=== PATIENT | female | born 1980 | race Hispanic/Latino ===

== ENCOUNTER 2021-05-19 18:36 | Emergency (ER) | payer BC, SELFPAY ==
--- NOTE | 2021-05-19 18:41 | ED.FEMALEGU ---
HPI - Female Genitourinary General Chief complaint: Urogenital-Female Stated complaint: uti Time Seen by Provider: 05/19/21 19:13 Source: patient and RN notes reviewed Mode of arrival: ambulatory Limitations: no limitations History of Present Illness HPI Narrative: 41-year-old female presents to the [facility] with complaints of I think I have a UTI. Has had right flank pain along with fever and urinary symptoms. States it is for started 4 to 5 weeks ago, did get better with home treatment. States that today the back pain and urinary symptoms became worse. Related Data Home Medications Medication Instructions Recorded Confirmed Bc Pill 05/19/21 metformin 05/19/21 Allergies Allergy/AdvReac Type Severity Reaction Status Date / Time No Known Allergies Allergy Verified 05/19/21 18:46 Review of Systems Review of Systems: All systems reviewed & are unremarkable except as noted in HPI and below Constitutional: Constitutional: Reports no additional constitutional complaints Eyes: Eyes: Reports no additional eye complaints ENT: Reports system reviewed and no additional complaints, except as documented Cardiovascular: Cardiovascular: Reports no additional cardiovascular complaints Respiratory: Respiratory: Reports no additional respiratory complaints Gastrointestinal: Gastrointestinal: Reports no additional gastrointestinal complaints Genitourinary: Genitourinary: Reports as per HPI, Reports nocturia and Reports dysuria Comments: right flank pain Musculoskeletal: Musculoskeletal: Reports no additional musculoskeletal complaints Integumentary/Breasts: Skin/Breast: Reports system reviewed and no additional complaints, except as docu Neurologic: Reports system reviewed and no additional complaints, except as documented Psychiatric: Psychiatric: Reports no additional psychiatric complaints Allergic/Immunologic: Allergic/Immunologic: Reports no additional allergic/immunologic complaints PMFSH Past Medical History Medical History (Updated 05/19/21 @ 19:42 by Marli Carter) PCOS (polycystic ovarian syndrome) Surgical History Surgical History (Updated 05/19/21 @ 19:14 by Marli Carter) No significant past surgical history Social History Social History (Updated 05/19/21 @ 19:14 by Marli Carter) Living arrangements: with family Gender identity (if verbalized by the patient): Female Comments At the time of my signature, I reviewed and agree with the nursing past medical, surgical, social, and family history. There is no relevant family history pertinent to the patient complaint. Exam Const: General: healthy appearing, no acute distress and alert Nutritional Appearance: well nourished and obese Orientation/consciousness: patient oriented x3 Limitations: no limitations HENMT: Head: normal to inspection Eyes: Conjunctivae: conjunctivae normal Pupils: Equal, round and reactive pupils present Neck: Neck: normal visual inspection, no lymphadenopathy and no meningeal signs Chest: Chest palpation & inspection: normal inspection of the chest Resp: Effort & Inspection: normal respiratory effort and no use of accessory muscles Auscultation: clear to auscultation bilaterally, no crackles, no rales, no rhonchi and no wheezes Cardio: Rate: regular rate Rhythm: regular rhythm GI: GI Palp: Yes Soft to palpation, No Tenderness to palpation present (GI) and No Guarding due to palpation present (GI) : General: Yes bladder normal to palpation and Yes CVA tenderness (right flank) on the right Back/Spine/Pelvis: Back: CVA tenderness (right) Skin: General skin exam: normal color Rashes: no rashes Wounds: no wounds Neuro: General: patient oriented x3, moves all extremities, no meningeal signs and no focal motor deficits Speech: normal speech Gait exam (Neuro): Normal gait present Extrem: General: normal to inspection Psych: Mental Status: mental status grossly normal Affect: normal aff
[2021-05-19 18:46] VITALS: BP 150/83; PULSE 133; RESP 22; TEMP 39.1; O2SAT 100
[2021-05-19 18:58] VITALS: BP 150/83; PULSE 133; RESP 22; TEMP 39.1; O2SAT 100
--- NOTE | 2021-05-19 18:59 | PC.NURSE ---
1851 in br to obtain ua spec.
[2021-05-19] MEDS: cefTRIAXone 1 GM VIAL IM (19:10)
[2021-05-19] MEDS: LIDOCAINE HCL 1% LOCAL INJ 20 ML VIAL 2.1 ML IM (19:11)
[2021-05-19 19:34] VITALS: PULSE 123; RESP 20; TEMP 37.2; O2SAT 100
== END 2021-05-19 19:45 | disposition home or self-care (01) ==
PROVIDERS: Emergency Provider Nurse Practitioner
DX: N12 Tubulo-interstitial nephritis, not specified as acute or chronic (principal); B96.20 Unspecified Escherichia coli [E. coli] as the cause of diseases classified elsewhere
CPT/HCPCS: 81003; 87077; 87086; 87088; 87186; 96372; 99213; G0463; J0696

== ENCOUNTER 2022-05-31 15:02 | Emergency (ER) | payer BC, SELFPAY ==
--- NOTE | ~2022-05-31 | XR_ITS ---
XR abdomen/kub 1V DATE: 05/31/2022 17:47 INDICATION: Kidney stone TECHNIQUE: AP projection, 2 views COMPARISON: 05/27/[address] abdomen pelvis FINDINGS: Approximately 5.5 mm calcified calculus is noted at the mid L4 level. Status post cholecystectomy. No evidence of bowel obstruction. Lung bases are clear. Included skeletal structures are unremarkable. IMPRESSION: Approximately 5.5 mm calcified ureteral calculus at mid L4 level Reviewed, dictated and finalized at [facility]. Reviewed, dictated and finalized at [facility].
--- NOTE | ~2022-05-31 | CT_ITS ---
EXAMINATION: CT abdomen pelvis wo con DATE: 05/31/2022 16:49 INDICATION: Left flank and groin pain, nausea and vomiting TECHNIQUE: Computed tomography (CT) of the abdomen and pelvis was performed without intravenous contr ast. Automated exposure control and iterative reconstruction technique were employed. Exam dose: 770 .66 mGy-cm total exam DLP. COMPARISON: None. FINDINGS: Lung bases are clear. Normal heart size. No pericardial or pleural effusion. Status post cholecystectomy. No bile duct or pancreatic duct dilatation. No hepatic, splenic, pancrea tic, and adrenal or renal space-occupying mass lesion is evident on this limited noncontrast examinat ion. There is an approximately 3.5 x 5 mm calculus of the left ureter at the L4 level, with moderate left hydroureteronephrosis. No other urinary tract calculus is noted. Normal caliber of the abdominal aorta. No intraperitoneal or retroperitoneal or pelvic mass lesion or adenopathy or ascites. The uterus, adnexal areas and urinary bladder are unremarkable. Small amount of free fluid in the posterior cul-de-sac, likely physiologic. Normal appendix. Diverticulosis of the sigmoid colon. No evidence of diverticulitis. No bowel obstruc tion or intraperitoneal free air. Included skeletal structures are unremarkable other than degenerative spurring of the lower thoracic spine. IMPRESSION: 3.5 x 5 mm obstructing left calculus at L4 level with moderate proximal left hydroureter onephrosis Diverticulosis of left colon; no evidence of diverticulitis Status post cholecystectomy Reviewed, dictated and finalized at [facility]. Reviewed, dictated and finalized at [facility]. IMPRESSION: 3.5 x 5 mm obstructing left calculus at L4 level with moderate pro ximal left hydroureteronephrosis Diverticulosis of left colon; no evidence of diverticulitis Status post cholecystectomy
[2022-05-31 15:04] VITALS: BP 143/87; PULSE 75; RESP 16; TEMP 36.5; O2SAT 100
[2022-05-31 16:11] LABS: Alanine Aminotransferase 19 U/L (6-35); Albumin Level 4.2 g/dL (3.5-5.1); Alkaline Phosphatase 58 U/L (38-126); Anion Gap 12 mmol/L (8-16); Aspartate Amino Transferase 31 U/L (14-36); Bilirubin,Total 0.3 mg/dL (0.2-1.3); Blood Urea Nitrogen 12 mg/dL (7-17); Calcium 8.6 mg/dL (8.4-10.2); Carbon Dioxide 22 mmol/L (22-30); Chloride 103 mmol/L (98-107); Estimated CRCL calculation 75 ml/min; Estimated Glomerular Filt Rate > 60; Glucose 117 mg/dL (65-110); Potassium 3.9 mmol/L (3.4-5.0); Sodium 137 mmol/L (137-145)
[2022-05-31 16:32] LABS: Basophils Absolute Auto 0.1 K/mm3 (0.0-0.1); Basophils Percent Auto 0.4 % (0.2-1.2); Eosinophils Percent Auto 0.1 % (0-4.4); Hematocrit 44.4 % (37.0-47.0); Hemoglobin 14.6 g/dL (12.0-15.0); Immature Granulocyte Absolute 0.07 K/mm3 (0.00-0.031); Immature Granulocyte Percent A 0.4 % (0-0.5); Lymphocytes Absolute Auto 1.36 K/mm3 (0.9-3.2); Lymphocytes Percent Auto 8.5 % (18.3-44.2); Mean Corpuscular HGB Conc 32.9 g/dl (32-36); Mean Corpuscular Hemoglobin 30.2 pg (26-34); Mean Corpuscular Volume 91.9 fl (80-100); Mean Platelet Volume 8.7 fl (7.4-10.4); Monocytes Absolute Auto 0.7 K/mm3 (0.1-0.6); Monocytes Percent Auto 4.1 % (2.6-8.5); Neutrophils Absolute Auto 13.9 K/mm3 (1.3-6.7); Neutrophils Percent Auto 86.5 % (45.5-73.1); Platelet Count Result 369 k/mm3 (150-375); Red Blood Count 4.83 M/mm3 (4.2-5.4); Red Cell Distribution Width 14.7 % (11.5-14.5)
[2022-05-31 16:34] LABS: Appearance Urine Slightly Cloudy (Clear); Bilirubin Urine 1+ (Negative); Color Urine Yellow (Yellow); Glucose Urine UA Negative (Negative); Ketones Urine 4+ mg/dL (Negative); Leukocyte Esterase Ur Negative LEU/UL (Negative); Nitrate Urine Negative (Negative); Protein Urine 2+ mg/dL (Negative); Specific Grav Ur >= 1.030 (1.001-1.035); Urobilinogen Urine 0.2 mg/dL (<2.0); pH Urine 5.5 (5.0-9.0)
--- NOTE | 2022-05-31 16:34 | ED.ABDPAIN ---
HPI - Abdominal Pain General Chief Complaint: Abdominal Pain Stated Complaint: left flank pain that began this morning with n/v Time Seen by Provider: 05/31/22 16:22 History of Present Illness HPI narrative: 42-year-old female here for evaluation of left flank/groin pain over the past 12 hours. Patient states the pain is intermittent but severe in nature, coming in waves, denies obvious trigger for her pain. She denies any alleviating factors, states that she took an ibuprofen this morning but unfortunately vomited up shortly afterwards. She has had 3 episodes of vomiting nonbloody/nonbilious emesis in total. She denies any fevers, chills, urinary complaints, diarrhea, constipation, chest pain or shortness of breath. No history of kidney stones. Related Data Home Medications Medication Instructions Recorded Confirmed Bc Pill 05/19/21 metformin 05/19/21 Allergies Allergy/AdvReac Type Severity Reaction Status Date / Time No Known Allergies Allergy Verified 05/19/21 18:46 Review of Systems Review of Systems: Gen: Denies fevers or chills Eyes: Denies eye pain or visual change ENT: Denies congestion Respiratory: Denies shortness of breath or cough CV: Denies chest pain or palpitations GI: Denies abdominal pain nausea, emesis or diarrhea denies burning, urgency, frequency or hematuria Musculoskeletal: Reports flank pain. Neuro: Denies numbness, tingling, weakness or focal weakness Skin: Denies rash Except as documented, all other systems reviewed and negative PMFSH Past Medical History Medical History PCOS (polycystic ovarian syndrome) Surgical History Surgical History No significant past surgical history Social History Social History (Updated 05/19/21 @ 19:14 by Marli Carter APRN) Gender identity (if verbalized by the patient): Female Exam Narrative: APPEARANCE: Well appearing, no pain in distress, well-nourished. Head: Normocephalic and atraumatic. EYES: PERRLA/EOMI, conjunctivae clear NOSE: No nasal drainage EARS: External ear normal in appearance THROAT: Oropharynx is clear. Mucous membranes are moist. NECK: Supple. No adenopathy, no masses. RESPIRATORY: Airway patent, respirations nonlabored. Clear to auscultation bilaterally, no rales, rhonchi, wheezing. CARDIOVASCULAR: Regular rate and rhythm without murmurs, rubs, or gallops. ABDOMINAL: No CVAT. Normoactive bowel sounds. Soft, nontender, nondistended. No rebound tenderness or guarding. MUSCULOSKELETAL: Extremities are warm and well-perfused. Moves all extremities well. No edema. NEURO: Normal speech. No focal neurologic deficits. SKIN: Skin is warm and dry. No rashes. PSYCHIATRIC: Normal affect/mood. Course Consultations Consultation #1: Spoke with Dr. Bloom, urology, agrees w/ plan for discharge w/ pain meds, will follow up in office Date: 05/31/22 Time: 17:56 Vital Signs Vital signs: Vital Signs Temperature 97.7 F 05/31/22 15:04 Pulse Rate 75 05/31/22 15:04 Respiratory Rate 16 05/31/22 15:04 Blood Pressure 143/87 H 05/31/22 15:04 Pulse Oximetry 100 05/31/22 15:04 Oxygen Delivery Room Air 05/31/22 15:04 Temperature 97.7 F 05/31/22 15:04 Pulse Rate 75 05/31/22 15:04 Respiratory Rate 16 05/31/22 15:04 Blood Pressure 143/87 H 05/31/22 15:04 Pulse Oximetry 100 05/31/22 15:04 Oxygen Delivery Room Air 05/31/22 15:04 MDM - Abdominal Pain MDM Narrative Medical decision making narrative: 42 year old female here for evaluation of left flank pain, nausea, vomiting for the past several hours. Here she is non-toxic appearing, normal vital signs, no CVA tenderness. Workup significant for a leukocytosis to 16.0, UA with 4+ ketones but does not appear infected; normal glucose/anion gap. Patient rehydrated with 1 L fluids, ketones may be due to dehydration. CT show
[2022-05-31 16:41] LABS: Add Urine Microscopic? YES; Blood Urine Trace-Intact (Negative)
[2022-05-31 16:51] LABS: Bacteria Urine Trace /hpf; Mucus Urine Moderate /lpf; Squamous Epithelial Cell Urine Many /hpf (Few); WBC Urine 0-3 /hpf
[2022-05-31] MEDS: ONDANSETRON INJ 4 MG/2 ML VIAL IV PUSH (17:07)
[2022-05-31] MEDS: SODIUM CHLORIDE 0.9% IV 1,000 ML 999 ML IV CONT (17:07)
[2022-05-31] MEDS: MORPHINE SULFATE (*CRX) 4 MG/ML INJ IV PUSH (17:07)
== END 2022-05-31 19:33 | disposition home or self-care (01) ==
PROVIDERS: Emergency Provider Emergency Medicine; PCP Physician Assistant
DX: N13.2 Hydronephrosis with renal and ureteral calculous obstruction (principal); E28.2 Polycystic ovarian syndrome; K57.90 Diverticulosis of intestine, part unspecified, without perforation or abscess without bleeding
CPT/HCPCS: 36415; 74018; 74176; 80053; 81001; 81025; 85025; 96361; 96374; 96375; 99284; J2270; J2405; J7030

== ENCOUNTER 2025-04-19 15:24 | Outpatient (CLI) | payer OTHER, SELFPAY ==
--- NOTE | ~2025-04-19 | MM_ITS ---
EXAMINATION: MM screening richard BI w maria luisa HISTORY: Screening TECHNIQUE: Craniocaudal and mediolateral oblique 3-D tomosynthesis images were obtained and synthetic 2-D images were generated. CAD analysis was submitted and interpreted. COMPARISON: No prior mammogram is available for comparison at this institution. BREAST PARENCHYMAL COMPOSITION: Not dense: There are scattered areas of fibroglandular density. FINDINGS: There is no evidence of suspicious mass, calcification, or architectural distortion to sugg est malignancy in either breast. There has been no suspicious interval change. IMPRESSION: 1. No mammographic evidence of malignancy. 2. Recommend routine screening mammography in one year. BI-RADS Category 1: Negative Reviewed, dictated and finalized at location A.
--- OUTSIDE RECORDS SUMMARY | 2025-04-19 15:30 | XMS_ITS | Clinical Summary ---
Author Organization [facility] Address [address] [place] [address] Care Team Providers Care Coordinator Of Placement Name Role Phone Unavailable Primary Care Provider Unavailabl e Source Comments [facility],non-owned Affiliates and Associated Physician Practices is amultiple site organization consisting of ambulatory clinics and hospital sitesin [place], [place], [place] and [place]. This disclosure is being madepursuant to the Care Everywhere program and may not contain all information available regarding this patient. Last updated 18.[facility] Allergies Active Allergy Reactions Criticality Noted Date Comments Adhesive Sensitivity 03/31/2012 Sensitivity to OR drape adhesive Medications * Be aware that medications may not be up to date on this document. Alwaysverify current medications with the patient. Vit-Fe Fumarate-FA ( VITAMIN) 28-0.8 MG tabletIndicatio ns: Take 1 Tab by mouth once daily. Indications: Active valACYclovir (VALTREX) 500 MG tablet Take 1 Tab by mouth 2 times daily. 60 Tab 1 2 Active ibuprofen (MOTRIN) 600 MG tablet Take 1 Tab by mouth every 6 hours as needed for Pain. 60 Tab 1 3 Active docusate sodium (COLACE) 100 MG capsule Take 1 Cap by mouth 2 times daily as needed for Constipation. 60 Cap 1 3 Active oxycodone-aceta minophen (PERCOCET) 5-325 MG tablet Take 1 Tab by mouth every 6 hours as needed for Pain. 30 Tab 0 3 Active Active Problems Patient Care Coordination No te Formatting of this note migh t be different from the original. Pharmacy # [phone] Problem Noted Date Diagnosed Date Velamentous insertion of umbilical cord 09/22/19 13 Overview (09/22/2012): Identified on 06/16/12 GDM, class A1 07/07/2012 Overview (09/02/2012): Last u/s on 09/01: 2371v(14.3) BPP 06/16 Bravo cerclage present 03/31/2012 Overview (09/22/2012): cerclage placed03/31/12, modified kaelyn, mersilene with prolene tag, knot at 12 o'clock Removed at 36 wks History of cerclage in prior as well Supervision of other high-risk 012 Overview (07/15/2015): Transfer from [facility] Dating: LMP c/w 6wk doc u/s Labs: A+/Immune/-/- Antibody: Neg HIV: NR Hgb/Hct/Plt: 14.4/41.8/385 HgbE: GC/CT: Neg/Neg Pap: Genetics: Anatomy: GCT: 125 04/21/12 Repeat GCT: 158 GTT: 84/211/174/112 GBS: neg 08/25/12 Breast/bottle: Contraception: H/O: section 03/16/2012 Overview (09/03/2012): OP report reviewed by Dr. Deras and was faxed to L&D on 09/03 Primary Low Transverse Uterine Incision. 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+, hx outbreak in On valtrex for symptoms LGSIL (low grade squamous in traepithelial lesion) on Pap smear Overview (04/07/2012): F/U pp, will defer colpo until after delivery Hx of delivery, currently Overview (04/07/2012): 26wk due to PTL Immunizations Immunization Administration Dates Next Due INFLUENZA VACCINE 06/02/2012 TDAP (7yrs+) 09/24/2012 Family History Medical History Relation Name Comments Hypercholesterolemia Father Cancer Mother Diabetes Mother Negative Family History Other Relation Name Status Comments Father Mother Other Social History Tobacco Use Types Packs/Day Years Used Date Smoking Tobacco: Never Alcohol Use Standard Drinks/Week Comments No 0 (1 standard drink = 0.6 oz pur e alcohol) Comments Unknown Sex and Gender Information Value Date Recorded Sex Assigned at Not on file Legal Sex Female 6:29 AM RESOURCE ENGINEER Gender Identity Not on file Sexual Orientation Not on file Last Filed Vital Signs Vital Sign Reading Time Taken Comments Blood Pressure 117/79 09/29/2012 3:00 PM RESOURCE ENGINEER Pulse 86 09/24/2012 3:24 PM RESOURCE ENGINEER Temperature 36.4 C (97.6 F) 09/25/2012 8:18 AM RESOURCE ENGINEER Respiratory Rate 18 09/25/2012 8:18 AM RESOURCE ENGINEER Oxygen Saturation 100% 09/24/2012 11:45 PM RESOURCE ENGINEER Inhaled Oxygen Concentration - - Weight 90.3 kg (199 lb) 09/29/2012 3:00 PM RESOURCE ENGINEER Height 152.4 cm (5') 09/22/2012 2:06 PM RESOURCE ENGINEER Body Mass Index 38.86 09/22/2012 2:06 PM RESOURCE ENGINEER Plan of Treatment Health Maintenance Due Date Last Done Comments COLOGUARD (AGES 45-75) - COL ON CA SCREENING 1978 COLON MONITORING 1978 COLONOSCOPY - COLON CA SCREENING 1978 CT COLONOGRAPHY - COLON CA SCREENING 1978 Colorectal Cancer Screening 1978 FIT - COLON CA SCREENING 1978 FLEX SIG - COLON CA SCREENING 1978 LIPID TESTING 1978 MAMMOGRAM 1978 HIV SCREENING 1993 HEPATITIS C SCREENING 02/07/1996 HEPATITIS B VACCINE (1 of 3 - 19+ 3-dose series) 1997 PAP SMEAR 1999 DTAP/TDAP/TD VACCINES (2 - T d or Tdap) 09/24/2022 09/24/2012 COVID-19 VACCINE (2023-2 5 season) 2024 DEPRESSION SCREENING 09/07/2024 INFLUENZA VACCINE (#1) 2025 06/02/2012 ZOSTER VACCINE (1 of 2) 02/12/2028 HIB VACCINE Aged Out No longer eligi ble based on patient's age to complete this topic HPV VACCINE Aged Out No longer eligi ble based on patient's age to complete this topic MENINGOCOCCAL (Group B) VACC INE SHARED DECISION-MAKING Aged Out No longer eligibl e based on patient's age to complete this topic MENINGOCOCCAL GROUPS A/C/Y/W VACCINE Aged Out No longer eligible b ased on patient's age to complete this topic PNEUMOCOCCAL VACCINE Aged Out No long er eligible based on patient's age to complete this topic Insurance MEDICAID - [place] Advance Directives * FULL RESUSCITATION (Latest Code Status on File) Date Activated Date Inactivated Comments 09/22/2012 1:53 PM 09/25/2012 12:47 PM
--- OUTSIDE RECORDS SUMMARY | 2025-04-19 15:30 | XMS_ITS | Clinical Summary ---
Author Organization [facility] Address [address] [place] [address] Care Team Providers Care Flattening Machine Operator Name Role Phone No, Physician Primary Care Provider [phone] Allergies No known active allergies Medications norgestimate-ethin yl estradioL (ORTHO TRI-CYCLEN) 0.18/0.215/0.25 mg-35 mcg (28) per tabletIndications: Contraception Take 1 tablet by mouth nightly 4 Active lisinopriL (PRINIVIL,ZESTRIL) 10 mg tabletIndications: hypertension Take 1 tablet (10 mg total) by mouth piece dyer before breakfast Active metFORMIN (GLUCOPHAGE) 1,000 mg tabletIndications: type 2 diabetes mellitus Take 1 tablet (1,000 mg total) by mouth 2 (two) times a day with meals Active ferrous sulfate 325 mg (65 mg of elemental iron) tabletIndications: Iron Deficiency Anemia Take 1 tablet (325 mg total) by mouth every other day Active simvastatin (ZOCOR) 20 mg tabletIndications: hyperlipidemia Take 1 tablet (20 mg total) by mouth nightly Active promethazine (PHENERGAN) 25 mg tablet TAKE 1/2 TABLET BY MOUTH EVERY 6 HOURS NEEDED FOR NAUSEA Active polyethylene glycol-electrolyte s 420 gram solution Take 240 mL by mouth once Active calcium citrate (CALCITRATE) 950 mg (200 mg of elemental calcium) tabletIndications: Hypocalcemia Prevention,hypocal cemia Take 1 tablet (950 mg total) by mouth piece dyer before breakfast Active acetaminophen (TYLENOL) 500 mg tablet Take 2 tablets (1,000 mg total) by mouth every 6 (six) hours as needed for pain 60 tablet 4 Active ibuprofen (ADVIL,MOTRIN) 600 mg tablet Take 1 tablet (600 mg total) by mouth every 6 (six) hours as needed for pain 30 tablet Active Active Problems Problem Noted Date Diagnosed Date Low grade squamous intraepit helial lesion on cytologic smear of cervix (LGSIL) 06/10/2024 Overview (02/16/2025): - Hx of abnormal paps (patient unsure), s/p multiple LEEPs - Pap 12/2023: LSIL, HR HPV+ - Colpo 02/2024: insufficient - Colpo 04/2024: ECC HSIL,CIN2 - Colpo 06/10/2024: low grade impression, no biopsies due to CIN2 - LEEP 06/27/24: HSIL+ at endocervical margins, opted for surveillance Plan: [] cotesting 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 Pt opted for colposcopy. Colposcopy performed as above. Challenging exam given anterior location of cervix. No acetowhite changes visualized. Endocervical curettage performed as above. Plan: [] Follow up pathology [] If normal, plan for cotesting in 1 year Type 2 diabetes mellitus 04/21/2024 Essential hypertension 04/21/2024 Encounters Date Type Department Care Team Description 02/20/2025 Results Follow-Up [facility] Obstetrics and Gynecology [address] [facility] 13th [place] [address] [place] [address] Quinn Betancur MD PhD Surgical pathology 02/17/2025 5:15 PM CDT - 02/17/2025 11:59 PM CDT Hospital Encounter [facility] [address] [place] [address] Discharge Disposition: Discharge to home or self care 02/17/2025 1:45 PM CDT Office Visit [facility] [address] [place] [id number] MIKKI III (cervical intraepithelial neoplasia grade III) with severe dysplasia (Primary Dx); Low grade squamous intraepithelial lesion on cytologic smear of cervix (LGSIL) 02/17/[address] [facility] [address] [place] [address] Martin Noriega MD MIKKI III (cervical intraepithelial neoplasia grade III) with severe dysplasia 02/01/2025 Telephone [facility] [address] [place] [address] 3rd Floor [address] [place] [phone] Ema Lama, ZORA 01/31/2025 Telephone [facility] [address] [place] [address] 3rd Floor [address] [place] [phone] Margarito Malik 01/27/2025 Telephone [facility] [address] [place] [address] 3rd Floor [address] [place] [phone] Charito Merrill RN 01/27/2025 Results Follow-Up [address] [address] Jo Carrizales MD PhD Pap and High Risk HPV and Genotyping (Cytology Component) 01/27/[address] [phone] Jo Carrizales MD PhD from Last 3 Months Surgical History Surgery Date Site/Laterality Comments CHOLECYSTECTOMY 09/07/2000 - 09/06/2001 Laparoscopic SECTION 2004, 2012 COLONOSCOPY 09/07/2023 - 09/06/2024 CERVICAL CERCLAGE 09/07/2004 - 09/06/2005 2005, 2013- STITCH REMOVED Medical History Medical History Date Comments Hypertension Type 2 diabetes mellitus Social History Tobacco Use Types Packs/Day Years Used Date Smoking Tobacco: Never Passive Smoke Exposure: Never Smokeless Tobacco: Never Tobacco Cessation:Counseling Given: Not Answered AUDIT-C Answer Date Recorded Q1: How often do you have a drink containing alc ohol? 2-4 times a month 06/16/2024 Q2: How many drinks containi ng alcohol do you have on a typical day when you are drinking? 1 or 2 06/16/2024 Q3: How often do you have si x or more drinks on one occasion? Never 06/16/2024 Hunger Vital Sign Answer Date Recorded Within the past 12 months, y ou worried that your food would run out before you got the money to buy more. Patient declined Within the past 12 months, t he food you bought just didn't last and you didn't have money to get more. Patient declined 04/2024 Personal Safety Answer Date Recorded Have you ever been in or are you currently in a harmful physical or emotional relationship or is someone making you feel afraid or unsafe? 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 Gender Identity Not on file Sexual Orientation Not on file Obstetrics History Last Filed Vital Signs Vital Sign Reading Time Taken Comments Blood Pressure 116/52 02/17/2025 2:00 PM CDT Pulse 94 02/17/2025 2:00 PM CDT Temperature 36.6 C (97.9 F) 06/28/2024 2:50 PM CDT Respiratory Rate 15 06/28/2024 2:50 PM CDT Oxygen Saturation 98% 02/17/2025 2:00 PM CDT Inhaled Oxygen Concentration - - Weight 88.3 kg (194 lb 9.6 oz) 02/17/2025 2:00 P M CDT Height 152.4 cm (5') 02/17/2025 2:00 PM CDT Body Mass Index 38.01 02/17/2025 2:00 PM CDT Plan of Treatment Health Maintenance Due Date Last Done Comments Albumin Creatinine Ratio, Urine 1980 Breast Cancer Screening-Mammogram 1980 Colon Cancer Screening-Colonoscopy 1980 Depression Screening 1980 Hemoglobin A1C 1978 Hepatitis C Screening 1978 eGFR 1980 Dilated Eye Exam 1978 Foot Exam 1978 Lipid Panel 1978 Hepatitis B Screening 02/12/1996 Regular Well Visit/Exam 18-64 02/12/1996 Pneumococcal vaccine <65 (2 of 2 - PCV) 04/29/2023 04/29/2022 Covid-19 Vaccine (3 - 2023-2 5 season) 2024 07/30/2021, 11/15/2020 Influenza Vaccine (#1) 2025 , 06/25/2023, 07/14/2022, Additional history exists Cervical Cancer Screening 01/06/2026 01/06/2025, 10/2024 DTaP/Tdap/Td Vaccine (3 - Td or Tdap) 04/29/2032 04/29/2022, 09/24/2012 Procedures Procedure Name Priority Date/Time Associated Diagnosis Comments SURGICAL PATHOLOGY Routine 02/17/2025 2: 48 PM CDT MIKKI III (cervical intraepithelial neoplasia grade III) with severe dysplasia [place] COLPOSCOPY CERVIX ENDOCERVICAL CURETTAGE Routine 02/17/2025 1:45 PM CDT MIKKI III (cervical intraepithelial neoplasia grade III) with severe dysplasia HIGH RISK HPV DNA DETECTION WITH GENOTYPING Routine 01/06/2025 2:25 PM CDT MIKKI III (cervical intraepithelial neoplasia grade III) with severe dysplasia from Last 3 Months or Most Recently Relevant to Health Maintenance Results * Surgical pathology (02/17/2025 2:48 PM CDT) Tissue (Endocervix, Biopsy) 02/17/2025 2:48 PM CDT 02/17/2025 5:08 PM CDT Narrative PATHOLOGY [facility] - 02/20/2025 10:44 AM CDT [facility] results best viewed via link to PDF [facility] [place] [address] Note to Patients: This report may contain a detailed description of human tissue sent by a health care provider to the laboratory for pathologic evaluation. The content of this report is essential for diagnosis and may provide important critical findings. This information may be unfamiliar to patients to review without a medical professional present. It is advised that the patient review this report in the presence of a health care provider who can answer questions and explain the details. SURGICAL PATHOLOGY REPORT FINAL Patient Name: DARRYL PHAN Gender: F : 1980 (Age: 45) Address: [address] [place] [address] Hospital #: [id number] Taken:02/17/2025 Received:02/17/2025 Reported: 02/20/2025 Patient Type: [facility] SPECIMEN Service: Laboratory Location: Physician(s): Martin Noriega, Diagnosis: Cervix, endocervix, curettage - Transformation zone with low-grade squamous intraepithelial lesion (LSIL, MIKKI 1) elca/02/20/2025 10:44 By this signature, I attest that the above diagnosis is based upon my personal examination of the slides(and/or other material indicated in the diagnosis). Jacqueline Leonard MD Report Electronically Reviewed and Signed Out By Jacqueline Leonard MD 02/20/2025 10:44:21 History: The patient is a 45-year-old woman with history of CIN2-3, status-post LEEP. Operative procedure: Endocervical curettage. Specimen(s) Received: A: Endocervical curettage Gross Description: Received in formalin, labeled with the patient's name and date of is a portion of wispy, white tissue admixed with possible hemorrhagic material measuring 1.1 x 0.6 x 0.1 cm in aggregate. Filtered and stained with eosin. Labeled A1. Jar 0. sxst/02/17/2025 17:28 PA(s): Cary Mejia By this signature, I attest that the above diagnosis is based upon my personal examination of the slides(and/or other material). Addenda/Procedures The performance characteristics of some immunohistochemical stains, fluorescence in-situ hybridization tests and immunophenotyping by flow cytometry cited in this report (if any) were determined by the Surgical Pathology and Flow Cytometry Departments at [facility] as part of an ongoing quality assurance test program manager program and in compliance with federally mandated regulations drawn from the Clinical Laboratory Improvement Act of 1988 (CLIA '88). Some of these tests rely on the use of analyte specific reagents and are subject to specific labeling requirements by the US Food and Drug Administration. Such diagnostic tests may only be performed in a facility that is certified by the Department of Health and Human Services as a high complexity laboratory under CLIA '88. The FDA has determined that such clearance or approval is not necessary. This test is used for clinical purposes. It should not be regarded as investigational or for research. Nevertheless, federal rules concerning the medical use of analyte specific reagents require that the following disclaimer be attached to the report: This test was developed and its performance characteristics determined by the Surgical Pathology and Flow Cytometry Departments of [facility]. It has not been cleared or approved by the U. S. Food and Drug Administration. IMAGES AND SCANNED DOCUMENTS, IF INCLUDED, ONLY VIEWABLE IN PDF VERSION OF REPORT us Martin Noriega MD LAB PATHOLOGY ORDERABLES Final Result PATHOLOGY [facility] 3rd Floor [place], [place] [phone] * [place] COLPOSCOPY CERVIX ENDOCERVICAL CURETTAGE (02/17/2025 1:45 PM CDT) Narrative Megan Lewis MD - 02/17/2025 1:45 PM CDT Megan Lewis MD 02/17/2025 2:57 PM Colposcopy Performed by: Martin Noriega MD Authorized by: Megan Lewis MD Consent given by: patient Time out: Immediately prior to procedure a time out was called to verify the correct patient, procedure, equipment, health support specialist and site/side marked as required. Risks, alternatives, and questions discussed: yes Pre-procedure: Prepped with: acetic acid Indication: Indication: ASC-US Procedure: Procedure: Colposcopy w/ endocervical curettage Troy speculum was placed in the vagina: yes Under colposcopic examination the transition zone was seen in entirety: no Endocervix was curetted using a Kevorkian curette: yes Specimen to pathology: yes Post-procedure: Patient tolerance of procedure: Patient tolerated the procedure well with no immediate complications Comments: Speculum exam with cervix located anteriorly and nearly flush with the vagina. Acetic acid applied. No acetowhite changes visualized. Squamocolumnar junction not visualized. Endocervical curettage performed with Kevorkian curette and sent to pathology. No bleeding at end of procedure. Pt tolerated well with no immediate complications. Megan Lewis MD IN CLINIC/BEDSIDE ORDER MELVIN Final Result * High Risk HPV DNA Detection with Genotyping (Molecular component) (01/06/2025 2:25 PM CDT) Pathologist [facility] HPV HR 16 Not Detected Not Detected [facility] HPV HR 18 Not Detected Not Detected [facility] HPV HR Non 16/18 Not Detected Not Detected [facility] Comment: Interpretive Data Nucleic acid amplification for detection of high-risk Human Papilloma virus (HPV) is performed by the Vahe Елена 6800 HPV test. This assay specifically detects HPV-16 and HPV-18 genotypes. The following HPV genotypes are detected as high-risk HPV: HPV-31, 33, 35, ,39, 45, 51, 52, 56, 58, 59, 66, and 68. This assay has been approved by the [place] Food and Drug Administration for detection of HPV in cervical specimens collected by a physician using an endocervical brush/spatula or cervical broom and placed in the ThinPrep Pap Test PreservCyt collection containers. The performance characteristics of this test have been verified by the [facility] Molecular Infectious Disease laboratory. Correlate with separately reported cytology results, as applicable. Interpretive data last revised 23 Endocervical 01/06/2025 2:25 PM CDT 01/09/2025 3:40 PM CDT Narrative [facility] - 01/10/2025 4:18 AM CDT Clinical history and diagnosis->s/p LEEP 06/2024, HSIL with positive margins Number of vials->1 Testing type->Screening Last menstrual period (date if known)->unknown us Charlie Amaya MD LAB BODY FLUIDS AND S TOOLS ORDERABLES Final Result [facility] One [facility] Department [place] [address] [facility] from Last 3 Months or Most Recently Relevant to Health Maintenance Insurance [facility] [employer] Address: [address] [address] [place] [address] [facility] [employer] Address: [address] [address] [place] [address] Care Teams Flattening Machine Operator Relationship Specialty Start Date End Date No, Physician PCP - General 06/06/24
--- OUTSIDE RECORDS SUMMARY | 2025-04-19 15:30 | XMS_ITS | Clinical Summary ---
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 Gender Identity Not on file Sexual Orientation Not on file Plan of Treatment Health Maintenance Due Date Last Done Comments Hepatitis C Virus (HCV) Screening 1980 TdaP Immunization 1978 Hepatitis B Immunization (1 of 3 - 19+ 3-dose series) 1997 Pap Smear 1999 Cervical Cancer Screening (CCS) 02/12/2008 HPV/Cotest 02/12/2008 Cologuard 2023 Colonoscopy 2023 Colorectal Cancer Screening 2023 Immunochemical Fecal Occult Blood 2023 SARS-COV-2 Immunization ( season) 2024 07/30/2021, 11/15/2020 Influenza Immunization (#1) 05/08/202506/08, 06/16/2020, 07/01/2019, Additional history exists Respiratory Syncytial Virus (RSV) Immunization (Adult) (1 - 1-dose 75+ series) 2053 Human Papillomavirus (HPV) Immunization Aged Out No longer eligible based on patient's age to complete this topic Meningococcal Immunization (ACWY) Aged Out No longer eligible based on patient's age to complete this topic Pneumococcal Immunization Combined Aged Out No longer eligible based on patient's age to complete this topic Rotavirus Immunization Aged Out No lo nger eligible based on patient's age to complete this topic
--- OUTSIDE RECORDS SUMMARY | 2025-04-19 15:30 | XMS_ITS | Encounter Summary ---
Author Organization [facility] Address [address] [place] [address] Phone Care Team Providers Care Broadcast Systems Engineer Name Role Phone No, Physician Primary Care Provider [phone] Encounter Details Date Type Department Care Team (Late st Contact Info) Description 02/20/2025 Results Follow-Up [facility] Obstetrics and Gynecology [address] [facility] 13th [place] [address] [place] [address] Quinn Betancur MD PhD [address] [address] Surgical pathology Social History Tobacco Use Types Packs/Day Years Used Date Smoking Tobacco: Never Passive Smoke Exposure: Never Smokeless Tobacco: Never AUDIT-C Answer Date Recorded Q1: How often [...] on file 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
== END 2025-04-19 15:25 | disposition home or self-care (01) ==
LOC: ANHIMG 15:26
PROVIDERS: PCP Physician Assistant; Visit Provider Physician Assistant
DX: Z12.31 Encounter for screening mammogram for malignant neoplasm of breast (principal)
CPT/HCPCS: 77063; 77067

== ENCOUNTER 2025-08-10 09:51 | Emergency (ER) | payer OTHER, SELFPAY ==
--- NOTE | ~2025-08-10 | XR_ITS ---
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 Technique: 2 views obtained. Findings: The lungs are clear, no effusion. No pneumothorax. Heart is normal size. Mediastinal and hilar contours are within normal limits. Bony thorax no acute abnormality. Impression: No acute cardiopulmonary abnormality. Reviewed, dictated and finalized at location P. UIT HELPER Impression: No acute cardiopulmonary abnormality.
[2025-08-10 10:00] VITALS: BP 138/72; PULSE 81; RESP 18; TEMP 36.7; O2SAT 100
--- NOTE | 2025-08-10 10:17 | ED.BACK ---
HPI - Back Pain/Injury General Chief Complaint: Back Pain/Injury Stated Complaint: lower back pain Time Seen by Provider: 08/10/25 10:17 Source: patient and RN notes reviewed Mode of arrival: ambulatory Limitations: no limitations History of Present Illness HPI Narrative: 45-year-old female patient presents Express Care complaining of right mid back pain that started yesterday. The patient denies any falls or injuries. Patient also says she has been sick for 1 week. Patient also reports a nonproductive cough. Patient denies any chest pain, difficulty breathing, wheezing, shortness of breath, any other upper respiratory symptoms, fevers, body aches, chills, or any other symptoms. Patient says the pain is worse with a deep breath, certain movements of her back. Patient has any urinary symptoms. Patient reports history of diabetes and hypertension. Related Data Home Medications ?Medication ?Instructions ?Recorded ?Confirmed ?Last Taken ?Type Bc Pill 05/19/21 Unknown History metformin 05/19/21 Unknown History Allergies Allergy/AdvReac Type Severity Reaction Status Date / Time No Known Allergies Allergy Verified 08/10/25 09:56 Review of Systems Review of Systems: CONSTITUTIONAL: Denies fever, chills, or sweats. EYES: Denies visual changes, redness, or discharge. ENT: Denies rhinorrhea, congestion, sore throat, or otalgia. CARDIOVASCULAR: Denies chest pain, palpitations, or edema. RESPIRATORY: Positive for cough and pain with inspiration. Negative for wheezing or dyspnea. GASTROINTESTINAL: Denies abdominal pain, nausea, vomiting, or diarrhea. GENITOURINARY: Denies dysuria or hematuria. SKIN: Denies rash or itching. MUSCULOSKELETAL: Positive for back pain. Negative for joint pain, or myalgia. NEUROLOGIC: Denies headache, numbness, or weakness. PSYCHIATRIC: Denies anxiety or depression. All other systems reviewed are negative, except as documented in HPI. [facility] Past Medical History Medical History PCOS (polycystic ovarian syndrome) Surgical History Surgical History No significant past surgical history Social History Social History Living arrangements: with family Gender identity (if verbalized by the patient): Female Comments At the time of my signature, I reviewed and agree with the nursing past medical, surgical, social, and family history. There is no relevant family history pertinent to the patient complaint. Exam Narrative: GENERAL: This is a well-nourished, well-developed adult, in no apparent distress. They are non ill-appearing, nontoxic appearing. HEAD: normocephalic, atraumatic. EYES: Sclera clear/white. Conjunctiva normal. Vision is grossly intact. Extraocular movements intact EARS: External ears normal, auditory canals clear and without drainage, TMs normal without perforation. Hearing grossly intact. NOSE: External nose normal with no obvious nasal discharge, nasal turbinates without redness, no rhinorrhea. THROAT: Mucous membranes moist, posterior pharynx clear, without erythema or swelling. Uvula midline. Postnasal drip present. NECK: Neck supple, non-tender without lymphadenopathy, masses or thyromegaly. CARDIOVASCULAR: Regular rate and rhythm without murmurs, gallops, or rubs. RESPIRATORY: Clear to auscultation. Breath sounds equal bilaterally. No wheezes, rales, or rhonchi. SKIN: warm, Dry, intact with no suspicious lesions or rash, good texture and turgor. NEURO: awake, alert, and oriented to person, place and time. There were no obvious focal neurologic abnormalities. EXTREMITIES: No joint tenderness, effusion, or edema noted. BACK: Nontender without deformity. No CVA tenderness. No cervical, thoracic, lumbar point tenderness, crepitus, step-offs. Course Course Level of Care: Express Care Visit Vital Signs Vital signs: Vital Signs Temperature 98.1 F 08/10/25 10:00 Pulse Rate 81 08/10/25 10:00 Respiratory Rate 18 08/10/25 10:00 Blood Pressure 138/72 08/10/25 10:00 Pulse Oximetry 100 08/10/25 10:00 Oxygen Delivery Room Air 08/10/25 10:00 Temperature 98.1 F 08/10/25 10:00 Pulse Rate 81 08/10/25 10:00 Respiratory Rate 18 08/10/25 10:00 Blood Pressure 138/72 08/10/25 10:00 Pulse Oximetry 100 08/10/25 10:00 Oxygen Delivery Room Air 08/10/25 10:00 MDM MDM Narrative Medical decision making narrative: Patient could have a muscle skeletal strain, given pain inspiration to her back and her recent cough will obtain chest x-ray to rule out pneumonia. Chest x-ray is negative for any acute cardiopulmonary findings. Patient said her cough and symptoms are improving. Will send normal muscle relaxers her follow-up with her PCP. Discussed physical exam findings. Advised supportive measures and signs/symptoms to go to the ER. Pt is appropriate for outpt treatment and f/u. Differential Diagnosis Differential Diagnosis: Pneumonia, muscle strain, radiculopathy, pleurisy Imaging Data Radiologist's impression: ITS Impressions Chest X-Ray 08/10/25 10:45 Impression: No acute cardiopulmonary abnormality. Critical Care Time Critical Care Time Critical Care Time: No Discharge Plan Discharge Clinical Impression: Mid back pain on right side Patient Disposition: Home Condition: Stable Instructions: Back Pain (ED) Additional Instructions: Your Chest x-ray is negative for any acute cardiopulmonary findings. Take the muscle relaxer as directed. Do not drive or operate heavy machine, or work while taking the medication as it can make you drowsy. May use [id number] lidocaine patches as needed. Follow instructions on the packaging. You may take ibuprofen 600 mg to 800 mg every 6-8 hours. Do not exceed more than 800 mg of ibuprofen per dose. Do not exceed more than 3200 mg ibuprofen in a day. You may take up to 1000 mg Tylenol every 6-8 hours. Do not exceed 1000 mg per dose, do exceed more than 4000 mg of Tylenol in a day. Please follow-up with your primary care provider 3-5 days Rest. Avoid pushing, pulling, lifting --running or excessive walking-- or anything that worsens the symptoms Go to the emergency department if you develop any numbness or tingling to your groin, weakness in your legs, or any loss of bowel or bladder function, fevers, worsening cough cup chest pain, difficulty breathing, or any serious concerns.. Patient Language: Sinhala Prescriptions: New methocarbamol 750 mg tablet 750 mg PO TID Qty: 12 0RF No Action Bc Pill metformin sulfamethoxazole-trimethoprim 800-160 mg tablet 1 tablet PO Q12H 14 Days Qty: 28 0RF amoxicillin-pot clavulanate [Augmentin] 875-125 mg tablet 1 tablet PO Q12H 7 Days Qty: 14 0RF hydrocodone-acetaminophen 5-325 mg tablet 1 tablet PO Q8H PRN (Reason: pain) Qty: 7 0RF ondansetron 4 mg tablet,disintegrating 4 mg PO Q8H PRN (Reason: nausea and vomiting) Qty: 10 0RF Follow-up/Referrals: Bronson,SURENDRA Ríos [Primary Care Provider, Unknown] Stand Alone Forms: Work/School Release IP Time of Disposition: 11:11
== END 2025-08-10 11:18 | disposition home or self-care (01) ==
PROVIDERS: PCP Physician Assistant
DX: M54.6 Pain in thoracic spine (principal); E11.9 Type 2 diabetes mellitus without complications; Z79.84 Long term (current) use of oral hypoglycemic drugs; I10 Essential (primary) hypertension; E28.2 Polycystic ovarian syndrome
CPT/HCPCS: 71046; 99213; G0463